=== PATIENT | female | born 1965 | race Caucasian/White ===

== ENCOUNTER → 2018-02-11 | Outpatient (CLI) | payer BC ==
--- NOTE | 2018-02-12 09:01 | US ---
EXAMINATION TYPE: US kidneys/renal and bladder DATE OF EXAM: 02/11/2018 COMPARISON: MRI lumbar spine June 28, 2014 CLINICAL HISTORY: N39.0 FREQ AND RECURRENT URINATION. EXAM MEASUREMENTS: Right Kidney: 12.1 x 3.3 x 5.2 cm Left Kidney: 11.5 x 3.9 x 4.7 cm Post Void Residual Volume: 24.7 mL Right Kidney: No hydronephrosis or masses seen Left Kidney: No hydronephrosis or masses seen Bladder: wnl Normal Post Void Residual: Yes There is no evidence for hydronephrosis at this point in time. No nephrolithiasis is seen. No yari s are identified. The urinary bladder is anechoic. Bilateral ureteral jets are not seen. Adjacent liver to right kidney is heterogeneously hyperechoic suggesting fatty infiltration. IMPRESSION: No hydronephrosis is evident bilaterally.
== END | disposition home or self-care (01) ==
LOC: RADUSWWP 14:22
PROVIDERS: ATTEND Internal Medicine
DX: N39.0 Urinary tract infection, site not specified (principal)
CPT/HCPCS: 76770

== ENCOUNTER → 2019-08-16 | Outpatient (CLI) | payer BC ==
--- NOTE | 2019-08-17 11:41 | MM ---
Reason for exam: screening (asymptomatic). Last mammogram was performed 3 years and 9 months ago. History: Patient is postmenopausal. Benign MG stereo VAD BX LT of the left breast, November 30, 2015. Physical Findings: A clinical breast exam by your physician is recommended on an annual basis and results should be correlated with mammographic findings. MG Screening Mammo w CAD Bilateral CC and MLO view(s) were taken. Prior study comparison: November 07, 2015, left breast MG 3d work up w/cad LT. October 23, 2015, bilateral MG screening mammo w CAD. The breast tissue is heterogeneously dense. This may lower the sensitivity of mammography. Finding #1: There is a 5 mm equal density (isodense) mass in the subareolar position of the left breast consistent with calcifications. Finding #2: There are typically benign calcifications in both breasts. Previous mammotome biopsy in the left breast. There is an asymmetric density right upper outer quadrant. ASSESSMENT: Incomplete: need additional imaging evaluation, BI-RAD 0 RECOMMENDATION: Special view mammogram of both breasts. If lesion persists on supplemental views, image directed ultrasound is recommended. [facility] will attempt to contact patient to return for supplemental views and ultrasound if indicated.
== END | disposition home or self-care (01) ==
LOC: RADMAMWWP 12:39
PROVIDERS: ATTEND Internal Medicine
DX: Z12.31 Encounter for screening mammogram for malignant neoplasm of breast (principal)
CPT/HCPCS: 77067

== ENCOUNTER → 2019-08-23 | Outpatient (CLI) | payer BC ==
--- NOTE | 2019-08-23 11:37 | MM ---
Reason for exam: additional evaluation requested from abnormal screening. Last mammogram was performed less than 1 month ago. History: Patient is postmenopausal. Benign MG stereo VAD BX LT of the left breast, November 30, 2015. Physical Findings: Nurse did not find any significant physical abnormalities on exam. MG Work Up Mamm w CAD BILAT Bilateral CC with magnification and ML with magnification view(s) were taken. ML view(s) were taken of the left breast. Prior study comparison: August 16, 2019, bilateral MG screening mammo w CAD. November 07, 2015, left breast MG 3d work up w/cad LT. The breast tissue is heterogeneously dense. This may lower the sensitivity of mammography. Finding: There are typically benign round, diffuse/scattered and grouped calcifications in the left breast. No distinct lesion persists. These results were verbally communicated with the patient and result sheet given to the patient on 08/23/19. ASSESSMENT: Benign, BI-RAD 2 RECOMMENDATION: Return to routine screening mammogram schedule for both breasts.
== END | disposition home or self-care (01) ==
LOC: RADMAMWWP 10:21
PROVIDERS: ATTEND Obstetrics & Gynecology
DX: R92.8 Other abnormal and inconclusive findings on diagnostic imaging of breast (principal)
CPT/HCPCS: 77066

== ENCOUNTER 2023-07-28 08:42 | Day surgery (SDC) | payer BC, OTHER ==
[~2023-07-28 08:42] MED LIST: LIDOCAINE 1% (10MG/ML) FOR IV START INTRADERMA PRN
[2023-07-28 09:16] VITALS: TEMP 97.8
[2023-07-28] MEDS: LACTATED RINGERS 1,000 ML IV SCH (09:25)
[2023-07-28] MEDS ORDERED: ONDANSETRON 4 MG/2 ML VIAL ONE (09:50)
[2023-07-28] MEDS ORDERED: PROPOFOL 10 MG/ML 20 ML VIAL IV ONE (09:50)
--- NOTE | 2023-07-28 10:18 | P.PCN ---
Date of Procedure: 07/28/23 Procedure(s) Performed: BRIEF HISTORY: Patient is a, 58-year-old pleasant white female scheduled for an elective colonoscopy as a part of screening for colon cancer. PROCEDURE PERFORMED: Colonoscopy. PREOPERATIVE DIAGNOSIS: Screening for colon cancer. IV sedation per Anesthesia. PROCEDURE: After informed consent was obtained, the patient, was brought into the endoscopy unit. IV sedation was administered by Anesthesia under continuous monitoring. Digital rectal examination was normal. Initially the Olympus CF-160 flexible video colonoscope was then inserted in the rectum, gradually advanced into the cecum without any difficulty. Careful examination was performed as the scope was gradually being withdrawn. Ileocecal valve and the appendiceal orifice were visualized and appeared normal. Prep was excellent. Mucosa of the cecum, ascending colon, transverse colon, descending colon, sigmoid colon, and rectum appeared normal. Retroflexion was performed in the rectum and no lesions were seen. The patient tolerated the procedure well. IMPRESSION: Normal-appearing colon from rectum to cecuM with no evidence of colorectal neoplasia . Scattered sigmoid diverticula RECOMMENDATIONS: Findings of this examination were discussed with the patient as well as a family. She was advised to have a repeat screening colonoscopy in 10 years..
[2023-07-28 11:07] VITALS: BP 123/70; PULSE 77; RESP 18
== END 2023-07-28 10:54 | disposition home or self-care (01) ==
LOC: ORWHC2ENDO 08:42
PROVIDERS: ATTEND Internal Medicine Gastroenterology
DX: Z12.11 Encounter for screening for malignant neoplasm of colon (principal); K57.30 Diverticulosis of large intestine without perforation or abscess without bleeding; E78.5 Hyperlipidemia, unspecified; F17.200 Nicotine dependence, unspecified, uncomplicated; F12.90 Cannabis use, unspecified, uncomplicated; F41.9 Anxiety disorder, unspecified; F32.A Depression, unspecified; Z80.0 Family history of malignant neoplasm of digestive organs; Z79.899 Other long term (current) drug therapy
CPT/HCPCS: J2405; J2704; G0121

== ENCOUNTER 2023-11-19 19:25 | Emergency (ER) | payer OTHER ==
[2023-11-19 19:34] VITALS: TEMP 98.1
[2023-11-19] MEDS: ONDANSETRON ODT 4 MG TAB PO STA ×2 (19:59→22:13)
[2023-11-19] MEDS: KETOROLAC 15 MG/ML 1 ML VIAL IM STA (20:00)
[2023-11-19] MEDS: HYDROmorphone 1 MG/ML 1 ML SYRINGE IM STA (20:01)
--- NOTE | 2023-11-19 21:53 | XR ---
PROCEDURE: XR knee complete LT - 3V DATE AND TIME: 11/19/2023 8:10 PM CLINICAL INDICATION: PHH; twisting injury TECHNIQUE: Department protocol COMPARISON: None FINDINGS / IMPRESSION: Small joint effusion noted. No acute fracture/malalignment. No focal osseous lesions.
--- NOTE | 2023-11-19 22:05 | ED ---
General Adult HPI - General Chief complaint: Extremity Injury, Lower Stated complaint: Swollen Knee/Pain Time Seen by Provider: 11/19/23 19:35 Source: patient, RN notes reviewed Mode of arrival: wheelchair Limitations: no limitations - History of Present Illness Initial comments: 58-year-old female presents to the emergency department for evaluation of left knee injury. Patient states that she was walking earlier today when she got her foot caught causing her knee to twist. She states that she was evaluated at urgent care prior to this and was told to come to the emergency department. Patient reports that she cannot bear weight due to the pain. Denies any other injury. - Related Data Home Medications Medication Instructions Recorded Confirmed Zolpidem Tartrate [Ambien] 10 mg PO HS 10/21/15 07/28/23 Celecoxib [CeleBREX] 200 mg PO DAILY PRN 07/23/23 07/28/23 HYDROcodone/APAP 7.5-325MG [[place] 1 tab PO TID PRN 07/23/23 07/28/23 7.5-325] Omeprazole [PriLOSEC] 20 mg PO HS 07/23/23 07/28/23 Rosuvastatin [Crestor] 20 mg PO HS 07/23/23 07/28/23 Venlafaxine HCl [Effexor XR] 37.5 mg PO BID 07/23/23 07/28/23 Vitamin K2 [Vitamin K-2] 100 mcg PO DAILY 07/23/23 07/28/23 buPROPion XL [Wellbutrin XL] 150 mg PO HS 07/23/23 07/28/23 Allergies Allergy/AdvReac Type Severity Reaction Status Date / Time gabapentin Allergy Rash/Hives Verified 11/19/23 19:35 nitrofurantoin Allergy flu Verified 11/19/23 19:35 symptoms, lungs swelled nortriptyline [From Pamelor] Allergy Rash/Hives Verified 11/19/23 19:35 Review of Systems ROS Statement: Those systems with pertinent positive or pertinent negative responses have been documented in the HPI. ROS Other: All systems not noted in ROS Statement are negative. Past Medical History Past Medical History: GERD/Reflux, Hyperlipidemia, Skin Disorder Additional Past Medical History / Comment(s): eczema, maternal grandma-colon cancer History of Any Multi-Drug Resistant Organisms: ESBL Date of last positivie culture/infection: 02/24/18 MDRO Source:: ESBL URINE Past Surgical History: Back Surgery Additional Past Surgical History / Comment(s): back surg x2, last one fusion Past Anesthesia/Blood Transfusion Reactions: Motion Sickness, Postoperative Nausea & Vomiting (PONV) Past Psychological History: Anxiety, Depression Smoking Status: Current every day smoker Past Alcohol Use History: Occasional Past Drug Use History: Marijuana General Exam Limitations: no limitations General appearance: alert, in no apparent distress Head exam: Present: atraumatic, normocephalic, normal inspection Eye exam: Present: normal appearance, PERRL, EOMI. Absent: scleral icterus, conjunctival injection, periorbital swelling Respiratory exam: Present: normal lung sounds bilaterally. Absent: respiratory distress, wheezes, rales, rhonchi, stridor Cardiovascular Exam: Present: regular rate, normal rhythm, normal heart sounds. Absent: systolic murmur, diastolic murmur, rubs, gallop, clicks Extremities exam: Present: tenderness, normal capillary refill, other (Distal pulses 2+, swelling to the medial aspect of the left knee). Absent: full ROM Neurological exam: Present: alert, oriented X3 Psychiatric exam: Present: normal affect, normal mood Skin exam: Present: warm, dry, intact, normal color. Absent: rash Course Vital Signs 11/19/23 11/19/23 19:33 22:35 Temperature 98.1 F Pulse Rate 88 89 Respiratory 18 16 Rate Blood Pressure 119/72 120/75 O2 Sat by Pulse 99 Oximetry Medical Decision Making - Medical Decision Making Was pt. sent in by a medical professional or institution (, PA, [employer], urgent care, hospital, or [facility]...) When possible be specific @ -No Did you speak to anyone other than the patient for history (EMS, parent, family, police, friend...)? What history was obtained from this source @ -No Did you review nursing and triage notes (agree or disagree)? Why? @ -I reviewed and agree with nursing and triage notes Were old charts reviewed (outside hosp., previous admission, EMS record, old EKG, old radiological studies, urgent care reports/EKG's, [facility] records)? Report findings @ -No old charts were reviewed Differential Diagnosis (chest pain, altered mental status, abdominal pain women, abdominal pain men, vaginal bleeding, weakness, fever, dyspnea, syncope, headache, dizziness, GI bleed, back pain, seizure, CVA, palpatations, mental health, musculoskeletal)? @ -Differential Musculoskeletal Muscular strain, contusion, ligament sprain, fracture, arthritis, septic arthritis, bursitis, cellulitis, muscle spasm, nerve compression, DVT, arterial occlusion, herpes zoster, electrolyte abnormality, tumor.... This is not meant to be in all inclusive list EKG interpreted by me (3pts min.). @ -None X-rays interpreted by me (1pt min.). @ -X-ray of the left knee obtained which shows no evidence of acute fracture or dislocation, soft tissue swelling present CT interpreted by me (1pt min.). @ -None done U/S interpreted by me (1pt. min.). @ -None done What testing was considered but not performed or refused? (CT, X-rays, U/S, labs)? Why? @ -None What meds were considered but not given or refused? Why? @ -None Did you discuss the management of the patient with other professionals (professionals i.e. , PA, [employer], lab, RT, psych nurse, social contact worker, frame nailer, teacher, sergeant of officers, home health care case manager)? Give summary @ -No Was smoking cessation discussed for >3mins.? @ -No Was critical care preformed (if so, how long)? @ -No Were there social determinants of health that impacted care today? How? (Homelessness, low income, unemployed, alcoholism, drug addiction, transportation, low edu. Level, literacy, decrease access to med. care, correction, rehab)? @ -No Was there de-escalation of care discussed even if they declined (Discuss DNR or withdrawal of care, Hospice)? DNR status @ -No What co-morbidities impacted this encounter? (DM, HTN, Smoking, COPD, CAD, Cancer, CVA, ARF, Chemo, Hep., AIDS, mental health diagnosis, sleep apnea, morbid obesity)? @ -None Was patient admitted / discharged? Hospital course, mention meds given and route, prescriptions, significant lab abnormalities, going to OR and other pertinent info. @ -Discharge. Patient presented to the emergency department for evaluation of left knee injury. Patient underwent x-rays which show no evidence of acute fracture or dislocation. Patient was provided medication for pain control while in the emergency department patient will be provided knee immobilizer and crutches. Advised to follow-up with orthopedics. Patient understanding and agreeable with this plan. Patient stable at time of discharge. Case discussed with Dr. Bruner Undiagnosed new problem with uncertain prognosis? @ -No Drug Therapy requiring intensive monitoring for toxicity (Heparin, Nitro, Insulin, Cardizem)? @ -No Were any procedures done? @ -No Diagnosis/symptom? @ -Default Acute, or Chronic, or Acute on Chronic? @ -Default Uncomplicated (without systemic symptoms) or Complicated (systemic symptoms)? @ -Default Side effects of treatment? @ -No Exacerbation, Progression, or Severe Exacerbation? @ -No Poses a threat to life or bodily function? How? (Chest pain, [place], PA, pneumonia, PE, COPD, DKA, ARF, appy, cholecystitis, CVA, Diverticulitis, Homicidal, Suicidal, threat to staff... and all critical care pts) @ -No Disposition Clinical Impression: Knee sprain Disposition: HOME SELF-CARE Condition: Stable Instructions (If sedation given, give patient instructions): Knee Sprain (ED) Additional Instructions: Please rest, ice, elevate the knee. Utilize ibuprofen with the [place]. Follow up with orthopedics. Return to the emergency department for new or worsening symptoms. Is patient prescribed a controlled substance at d/c from ED?: Yes When asked, does pt state using other controlled substances?: No If prescribed controlled substance>3 days was MAPS reviewed?: Prescribed <3 Days Referrals: Conner oRse MD [Primary Care Provider] - 1-2 days Cory Nuñez DO [Doctor of Osteopathic Medicine] - 1-2 days
[2023-11-19] MEDS: ACET/COD 300 MG/30 MG STARTER PACK 6 TAB BTL PO STA (22:11)
[2023-11-19] MEDS: HYDROmorphone 0.5 MG/0.5 ML SYRINGE IM STA (22:12)
[2023-11-19 22:51] VITALS: BP 120/75; PULSE 89; RESP 16
== END 2023-11-19 22:35 | disposition home or self-care (01) ==
LOC: EC 19:25
DX: S83.92XA Sprain of unspecified site of left knee, initial encounter (principal); F17.200 Nicotine dependence, unspecified, uncomplicated; F12.90 Cannabis use, unspecified, uncomplicated; Z88.8 Allergy status to other drugs, medicaments and biological substances; Z88.1 Allergy status to other antibiotic agents; X50.1XXA Overexertion from prolonged static or awkward postures, initial encounter; Y93.01 Activity, walking, marching and hiking
CPT/HCPCS: 73562; 99284; 96372 ×3; L1830; J1170 ×2; J1885